=== PATIENT | female | born 1980 | race American Indian/Alaskan Native ===

== ENCOUNTER 2019-06-21 05:36 | Inpatient (IN) | payer OTHER ==
[2019-06-21] MEDS ORDERED: FAMOTIDINE 20 MG/2 ML INJ IV ONE (06:00)
[2019-06-21] MEDS ORDERED: BICITRA ORAL LIQD 30ML PO ONE (06:00)
[2019-06-21] MEDS ORDERED: METOCLOPRAMIDE 10 MG/2 ML INJ IV ONE (06:00)
[2019-06-21] MEDS ORDERED: OXYTOCIN 20 UNIT/1000ML DRIP 20 UNITS/1,000 ML BAG IV SCH ×3 (06:00→11:00)
[2019-06-21] MEDS: LACTATED RINGERS 1,000 ML IV SCH ×2 (06:15→06:57)
[2019-06-21 06:27] LABS: Basophils % (Auto) 0.8 % (0.0-1.8); Eosinophils # (Auto) 0.1 K/mm3 (0.0-0.4); Eosinophils % (Auto) 2.1 % (0.0-4.3); Hematocrit 36.4 % (30.3-42.9); Hemoglobin 12.2 gm/dl (10.1-14.3); Lymphocytes # (Auto) 1.8 K/mm3 (1.2-5.4); Lymphocytes % (Auto) 32.4 % (13.4-35.0); Mean Corpuscular HGB Conc 34 % (30-34); Mean Corpuscular Volume 96 fl (79-97); Monocytes # (Auto) 0.6 K/mm3 (0.0-0.8); Monocytes % (Auto) 11.2 % (0.0-7.3); Platelet Count 175 K/mm3 (140-440); Red Cell Distribution Width 13.5 % (13.2-15.2)
--- NOTE | 2019-06-21 06:47 | Anesthesia Day of Surgery ---
Anesthesia Day of Surgery - Day of Surgery Patient Examined: Yes Patient H&P Reviewed: Yes Patient is NPO: Yes Beta Blockers: No Cardiac Clearance: No Pulmonary Clearance: No Rey's Test: N/A
[2019-06-21] MEDS ORDERED: ONDANSETRON 4 MG/2 ML INJ IV PRN ×2 (06:49→10:46)
--- NOTE | 2019-06-21 06:49 | Anesthesia Consultation ---
Anesthesia Consult and Med Hx Date of service: 06/21/19 - Airway Anesthetic Teeth Evaluation: Good ROM Head & Neck: Adequate Mental/Hyoid Distance: Adequate Mallampati Class: Class II Intubation Access Assessment: Probably Good - Pulmonary Exam CTA: Yes - Cardiac Exam Cardiac Exam: RRR - Pre-Operative Health Status ASA Pre-Surgery Classification: ASA2 Proposed Anesthetic Plan: Epidural - Pulmonary Hx Smoking: No Hx Asthma: No Hx Respiratory Symptoms: No SOB: No COPD: No Home Oxygen Therapy: No Hx Pneumonia: No Hx Sleep Apnea: No - Cardiovascular System Hx Hypertension: No Hx Coronary Artery Disease: No Hx Heart Attack/AMI: No Hx Angina: No Hx Percutaneous Transluminal Coronary Angioplasty (PTCA): No Hx Cardia Arrhythmia: No Hx Pacemaker: No Hx Internal Defibrillator: No Hx Valvular Heart Disease: No Hx Heart Murmur: No Hx Peripheral Vascular Disease: No - Central Nervous System Hx Neuromuscular Disorder: No Hx Seizures: No CVA: No Hx Back Pain: Yes Hx Psychiatric Problems: No - Gastrointestinal Hx Ulcer: No Hx Gastroesophageal Reflux Disease: Yes - Endocrine Hx Renal Disease: No Hx End Stage Renal Disease: No Hx Cirrhosis: No Hx Liver Disease: No Hx Insulin Dependent Diabetes: No Hx Non-Insulin Dependent Diabetes: No Hx Thyroid Disease: No Hx Hypothyroidism: No Hx Hyperthyroidism: No - Hematic Hx Anemia: No Hx Sickle Cell Disease: No - Other Systems Hx Alcohol Use: No Hx Substance Use: No Hx Cancer: No Hx Obesity: Yes
[2019-06-21] MEDS ORDERED: HYDROmorphone 1 MG/1 ML INJ IV PRN (06:50)
--- NOTE | 2019-06-21 08:13 | History and Physical Report ---
History of Present Illness Date of examination: 06/21/19 Date of admission: 06/21/19 05:36 Chief complaint: here for a second section. History of present illness: x 1 previous . AQUILES 06/24/2019. Past History Past Surgical History: section - Obstetrical History Expected Date of Delivery: 06/24/19 Actual Gestation: 39 Week(s) 4 Day(s) : 5 Para: 2 Medications and Allergies Allergies Allergy/AdvReac Type Severity Reaction Status Date / Time No Known Allergies Allergy Verified 06/21/19 05:59 Active Meds: Active Medications Citric Acid/Sodium Citrate (Bicitra) 30 ml PO ONCE ONE Stop: 06/21/19 08:04 Famotidine (Pepcid) 20 mg IV ONCE ONE Stop: 06/21/19 08:04 Hydromorphone HCl (Dilaudid) 0.5 mg IV Q5M PRN PRN Reason: BREAK>97-10) Stop: 06/21/19 14:32 Oxytocin/Sodium Chloride (Pitocin/Ns 20 Unit/1000ml Drip) 20 units in 1,000 mls @ 0 mls/hr IV TITR NIDHI Lactated Ringer's (Lactated Ringers) 1,000 mls @ 2,250 mls/hr IV PREOP NIDHI Stop: 06/22/19 06:27 Last Admin: 06/21/19 06:57 Dose: 2,250 mls/hr Documented by: Oxytocin/Sodium Chloride (Pitocin/Ns 20 Unit/1000ml Drip) 20 units in 1,000 mls @ 0 mls/hr IV TITR NIDHI Cefazolin Sodium (Ancef/Sterile Water 2 Gm/20 Ml) 2 gm in 20 mls @ 80 mls/hr IV PREOP NR; Protocol Metoclopramide HCl (Reglan) 10 mg IV ONCE ONE Stop: 06/21/19 08:04 Ondansetron HCl (Zofran) 4 mg IV Q8H PRN PRN Reason: Nausea And Vomiting Review of Systems All systems: negative - Vital Signs Vital signs: Vital Signs Temp Pulse Resp BP 98.5 F 82 17 118/69 06/21/19 06:38 06/21/19 06:38 06/21/19 06:38 06/21/19 06:38 Temp Pulse Resp BP Pulse Ox 98.5 F 82 17 118/69 06/21/19 06:38 06/21/19 06:38 06/21/19 06:38 06/21/19 06:38 - Physical Exam Lungs: Positive: Normal air movement Abdomen: Positive: distention. Negative: tenderness, guarding Uterus: Positive: normal size, enlarged, normal contour - Obstetrical FHR: auscultation normal Results Result Diagrams: 06/21/19 06:10 Abnormal lab results 06/21/19 Range/Units 06:10 Hardy % (Auto) 11.2 H (0.0-7.3) % All other labs normal. Assessment and Plan - Patient Problems (1) Previous delivery, antepartum Current Visit: Yes Status: Acute Plan to address problem: Patient was provided with all information she needed for an informed consent. She will be delivered by .
[2019-06-21] MEDS ORDERED: ceFAZolin/Water 2 GM/20 ML 2 GM/20 ML SYRINGE IV NR (08:30)
[2019-06-21] MEDS ORDERED: FAMOTIDINE 20 MG/2 ML INJ IV SCH (08:30)
[2019-06-21] MEDS ORDERED: BICITRA ORAL LIQD 30ML PO SCH (08:30)
[2019-06-21] MEDS ORDERED: WATER FOR IRRIG STERILE 1,500 ML BOTTLE IR ONE (08:38)
[2019-06-21] MEDS ORDERED: SODIUM CHLORIDE 0.9% IRR 1,500 ML BOTTLE IR ONE (08:38)
[2019-06-21] MEDS ORDERED: METOCLOPRAMIDE 10 MG/2 ML INJ IV NR (09:00)
[2019-06-21] MEDS ORDERED: ONDANSETRON 4 MG/2 ML INJ ONE (09:11)
[2019-06-21] MEDS ORDERED: DEXMEDETOMIDINE 200 MCG/2 ML VIAL IV ONE (09:11)
[2019-06-21] MEDS ORDERED: KETOROLAC 30 MG/1 ML INJ ONE (09:11)
[2019-06-21] MEDS ORDERED: LANOLIN/ZINC/DIMETHICONE (LANSINOH) 7 GM TP PRN (10:46)
[2019-06-21] MEDS ORDERED: ACETAMINOPHEN 325 MG TAB PO PRN (10:46)
[2019-06-21] MEDS ORDERED: MORPHINE 4 MG/1 ML INJ IV PRN (10:46)
[2019-06-21] MEDS ORDERED: NALOXONE 0.4 MG/1 ML INJ IV PRN (10:46)
[2019-06-21] MEDS ORDERED: WITCH HAZEL/ GLYCERIN PAD TP PRN (10:46)
--- NOTE | 2019-06-21 10:58 | Operative Report ---
Operative Report Operative Report: Date of surgery: June 21, 2019 Preoperative diagnoses: Term , previous section, elective repeat , breech presentation, peritoneal adhesions Postoperative diagnoses: The same. Operation: Lower segment transverse delivery Surgeon: Beena Hudson MD Process Analyst: Jerry Granado CRNA Anesthesia: Spinal block Estimated blood loss: 1000 mL Complications: None Findings: There was a live baby boy in footling breech presentation. weight was 8 pounds 10 ounces with Apgars of 8/9. There was a broad omental adherence to the right side of the midline anterior parietal peritoneum over the iliac fossa. Both ovaries and fallopian tubes as well as the uterus were all grossly normal. The uterus was not exteriorized and no bowel loops were visualized. Procedure in detail: The patient was taken to the operating room and given a spinal block. Patient was placed in the straight supine position and a Mathis catheter was inserted. The patient was prepped in the abdomen. The drapes were placed. A timeout was done. With the go ahead from the label fuser tender, a Pfannenstiel incision was made. This incision was carried across the subcutaneous layer to the fascia which was also divided transversely. The recti abdominis muscle flaps were stripped from the fascia using a combination of blunt and sharp dissections. The muscles were in the midline to gain access to the anterior parietal peritoneum which was divided after excluding any underlying viscera. The access to the peritoneal cavity was then widened by manual stretching. The bladder blade was applied. The utero vesicle peritoneal flap was divided transversely allowing the bladder to be displaced caudally. The uterine incision was placed in the lower segment transversely. The uterine incision was carried to the decidual layer. The uterine incision was extended on both sides using the bandage scissors. The amniotic sac was ruptured with clear fluid. The buttocks were delivered through the incision by pulling with the fingers within the flexed thigh against the pelvis. Upon reaching close to the knees the thighs were each abducted to deliver the lower limbs through the incision. Using a wet towel wrapped around the waist traction was used to deliver the baby up to the shoulder blades. The Lovset maneuver was used to deliver the arms. The baby was then grasped and the ankles and positioned head down after which fundal pressure and traction on the ankles delivered the head through the incision. The airways were bulb suctioned beginning with the mouth. The umbilical cord was double clamped and divided. The baby was carefully transferred to the pediatric team. The placenta was manually removed from the uterine cavity. The uterine cavity was explored and was empty of any placental remnants. The uterine incision was repaired in 2 layers with #1 Vicryl. The surgical line on the uterus was hemostatic. The adhesions involving the greater omentum to the anterior parietal peritoneum over the right iliac fossa where secured in a pedicle and transected. The stump s were then tied off with #1 Vicryl. Blood and clots were cleared from the peritoneal cavity. The anterior parietal peritoneum was repaired with #1 Vicryl. The fascia was repaired with #1 Vicryl. The subcutaneous layer was made hemostatic using the Bovie before the skin was closed subcuticularly with 4-0 Vicryl. There were no complications. The estimated blood loss was 1000 mL. All sponges and instrument counts were correct. Patient was safely transferred to the recovery room.
[2019-06-21] MEDS: KETOROLAC 30 MG/1 ML INJ IV PRN ×2 (15:54→21:58)
[2019-06-21] MEDS ORDERED: LACTATED RINGERS 1,000 ML IV SCH (16:00)
[2019-06-21] MEDS: HYDROcodone/ACETAMINOPHEN 5-325 MG TAB PO PRN (18:01)
[2019-06-21] MEDS: ceFAZolin/NS 1 GM/50 ML 1 GM/50 ML BAG IV SCH (19:08)
[2019-06-21 22:54] LABS: Hematocrit 27.6 % (30.3-42.9); Hemoglobin 9.7 gm/dl (10.1-14.3)
[2019-06-22] MEDS: HYDROcodone/ACETAMINOPHEN 5-325 MG TAB PO PRN (05:04)
[2019-06-22] MEDS: IBUPROFEN 800 MG TAB PO PRN (08:54)
[2019-06-22] MEDS: FERROUS SULFATE 325 MG TAB PO SCH (10:26)
[2019-06-22] MEDS: PRENATAL VIT27-FE FUMARATE-FOLIC ACID VIT TAB PO SCH (10:26)
[2019-06-22] MEDS: oxyCODONE /ACETAMINOPHEN 5-325MG TAB PO PRN ×2 (10:46→20:59)
--- NOTE | 2019-06-22 11:17 | Progress Note ---
Assessment and Plan - Patient Problems (1) S/P repeat low transverse Current Visit: Yes Status: Acute Plan to address problem: POD 1 - stable Continue routine postop orders Abdominal binder ordered Ambulation encouraged, as tolerated Anticipate discharge in 24-48 hours (2) Single live Current Visit: Yes Status: Acute (3) Anemia due to blood loss, acute Current Visit: Yes Status: Acute Plan to address problem: Asymptomatic Continue iron therapy Subjective - Subjective Date of service: 06/22/19 Principal diagnosis: POD #1; s/p Repeat LTCS Interval history: see [employer]-H&P and Operative Report Patient reports: appetite normal, voiding normally, pain well controlled, flatus, ambulating normally, no dizzy ambulation, no bowel movement : doing well, other (breast and bottle feeding) Objective - Vital Signs Latest vital signs: Vital Signs Temp Pulse Resp BP BP Pulse Ox 06/22/19 08:43 97.9 F 83 20 103/62 96 06/21/19 20:34 98.0 F 71 18 104/56 94 06/21/19 17:52 97.9 F 79 20 109/68 99 06/21/19 12:12 97.5 F L 18 106/68 06/21/19 11:49 97.4 F L 75 18 121/75 98 06/21/19 11:40 71 18 108/67 99 06/21/19 11:25 65 18 106/68 100 Intake and Output 06/21/19 06/22/19 06/22/19 23:59 07:59 15:59 Intake Total 200 300 Balance 200 300 Intake: Oral 200 Intake, Free Water 300 Other: Total, Intake Amount 200 # Voids Indwelling Catheter 700 - Exam Cardiovascular: Present: Regular rate Lungs: Present: Clear to auscultation Abdomen: Present: normal appearance, soft Vulva: both: normal Uterus: Present: normal, firm, fundal height at umbilicus Extremities: Present: normal Incision: Present: normal, dry, intact, dressed Comments: small lochia - Labs Labs: Abnormal lab results 06/21/19 Range/Units 22:34 Hgb 9.7 L (10.1-14.3) gm/dl Hct 27.6 L D (30.3-42.9) %
[2019-06-22] MEDS: ceFAZolin/NS 1 GM/50 ML 1 GM/50 ML BAG IV SCH (16:51)
--- NOTE | 2019-06-22 19:57 | Post Anesthesia Evaluation ---
- Post Anesthesia Evaluation Patient Participated: Yes Airway Patent: Yes Stable Respiratory Function: Yes Nausea/Vomiting: No Temp > 96.8F: Yes Pain Manageable: Yes Adequeate Hydration: Yes Anesthesia Complications: No Block Receding Appropriately: Yes
[2019-06-23] MEDS: oxyCODONE /ACETAMINOPHEN 5-325MG TAB PO PRN ×3 (04:08→20:03)
[2019-06-23] MEDS: PRENATAL VIT27-FE FUMARATE-FOLIC ACID VIT TAB PO SCH (09:54)
[2019-06-23] MEDS: FERROUS SULFATE 325 MG TAB PO SCH (09:54)
--- NOTE | 2019-06-23 11:26 | Progress Note ---
Assessment and Plan A: /postop day 2 S/P repeat LTCS. Anemia. P: Continue oral iron supplementation. Encouraged ambulation. Anticipate discharge home tomorrow if patient continues to do well. Subjective - Subjective Date of service: 06/23/19 Principal diagnosis: POD #2; s/p Repeat LTCS Interval history: /postop day 2 S/P repeat low transverse section. Doing well. Receiving oral iron supplementation for anemia. Patient is voiding without difficulty, passing gas, tolerating a regular diet, and ambulating well. Patient denies headache, dizziness, chest pain, shortness of breath, cough, leg pain, or heavy vaginal bleeding. Patient reports: appetite normal, voiding normally, pain well controlled, flatus, ambulating normally, no dizzy ambulation, no nauseated : doing well Objective - Vital Signs Latest vital signs: Vital Signs Temp Pulse Resp BP Pulse Ox 06/23/19 08:44 97.8 F 78 16 104/63 98 06/23/19 04:08 20 06/23/19 00:00 98.6 F 66 16 104/78 06/22/19 20:59 20 06/22/19 17:05 97.6 F 71 18 101/65 99 Intake and Output 06/22/19 06/23/19 06/23/19 23:59 07:59 15:59 Other: # Voids Void 1 - Exam Cardiovascular: Present: Regular rate, Normal S1, Normal S2, No murmurs Lungs: Present: Clear to auscultation Abdomen: Present: normal appearance, soft, normal bowel sounds. Absent: diste ntion, tenderness, guarding, rigidity Uterus: Present: normal, firm, fundal height below umbilicus. Absent: bogginess, tenderness Extremities: Present: normal, edema (mild pedal edema bilaterally). Absent: tenderness Incision: Present: normal, dry, intact, dressed
[2019-06-23] MEDS: IBUPROFEN 800 MG TAB PO PRN (17:49)
[2019-06-23] MEDS ORDERED: MAGNESIUM HYDROXIDE (MOM) ORAL LIQD UDC PO PRN (18:57)
[2019-06-24] MEDS: oxyCODONE /ACETAMINOPHEN 5-325MG TAB PO PRN ×3 (03:47→16:13)
[2019-06-24] MEDS: PRENATAL VIT27-FE FUMARATE-FOLIC ACID VIT TAB PO SCH (10:10)
[2019-06-24] MEDS: FERROUS SULFATE 325 MG TAB PO SCH (10:10)
--- NOTE | 2019-06-24 12:06 | Progress Note ---
Assessment and Plan A: /postop day 3 S/P repeat LTCS. Anemia. P: Continue iron supplementation. Recheck blood pressure. Continue ambulation. Elevated LE when at rest. Subjective - Subjective Date of service: 06/24/19 Principal diagnosis: POD #3; s/p Repeat LTCS Interval history: /postop day 3 S/P repeat low transverse section. Doing well. Receiving oral iron supplementation for anemia. Patient is voiding without difficulty, passing gas, tolerating a regular diet, and ambulating well. Patient denies headache, dizziness, chest pain, shortness of breath, cough, leg pain, nausea or vomiting or heavy vaginal bleeding. Patient reports: appetite normal, voiding normally, pain well controlled, flatus, ambulating normally, no dizzy ambulation, no nauseated Mouthcard: doing well Objective - Vital Signs Latest vital signs: Vital Signs Temp Pulse Resp BP BP Pulse Ox 06/24/19 09:01 97.9 F 78 18 151/65 98 06/24/19 03:47 06/24/19 01:36 97.8 F 86 20 108/73 99 06/23/19 20:03 20 06/23/19 15:54 97.9 F 76 14 110/68 100 Intake and Output 06/23/19 06/24/19 06/24/19 23:59 07:59 15:59 Intake Total 400 840 Balance 400 840 Intake: Oral 400 Intake, Free Water 840 Other: Total, Intake Amount 200 Voiding Method Toilet # Voids 1 Void 1 2 - Exam Cardiovascular: Present: Regular rate, Normal S1, Normal S2, No murmurs Lungs: Present: Clear to auscultation Abdomen: Present: normal appearance, soft, normal bowel sounds. Absent: distention, tenderness, guarding, rigidity Uterus: Present: normal, firm, fundal height below umbilicus. Absent: bogginess, tenderness Extremities: Present: edema (moderate pedal edema bilaterally). Absent: tenderness Incision: Present: normal, dry, intact
[2019-06-24 17:13] VITALS: BP 107/69
--- NOTE | 2019-06-24 18:00 | Discharge Summary ---
Providers - Providers Date of Admission: 06/21/19 05:36 Date of discharge: 06/24/19 Attending physician: KG ESPINAL Primary care physician: KG ESPINAL Hospitalization Reason for admission: section Delivery: Procedure: repeat low transverse Other procedures: none complications: none Discharge diagnosis: IUP at term delivered [place] baby: male Pertinent studies: Labs Hospital course: Normal hospital course. Condition at discharge: Good Disposition: DC-01 TO HOME OR SELFCARE - Discharge Diagnoses (1) Term delivered Status: Acute (2) Anemia Status: Acute Plan - Discharge Medications Prescriptions: HYDROcodone/APAP 5-325 [[place] 5/325] 1 - 2 each PO Q4HR PRN #30 tablet PRN Reason: Pain - Provider Discharge Summary Activity: routine, no sex for 6 weeks, no heavy lifting 4 weeks, no strenuous exercise Diet: routine Instructions: routine Additional instructions: Continue taking your vitamins and iron supplements at home. Call your doctor immediately for: * Fever > 100.5 * Heavy vaginal bleeding ( >1 pad per hour) * Severe persistent headache * Shortness of breath * Reddened, hot, painful area to leg or breast * Drainage or odor from incision. * Keep incision clean and dry at all times and follow doctor's instructions regarding bathing/showering - Follow up plan Follow up: KG ESPINAL MD [Primary Care Provider] - 06/26/19
== END 2019-06-24 21:25 | disposition home or self-care (01) | DRG 787 ==
LOC: UNDOADMIN 05:36 → APU 05:36 → UNDOADMIN 09:28 → APU 09:28 → OB 12:31
PROVIDERS: ADMIT Obstetrics & Gynecology; ATTEND Obstetrics & Gynecology
PROC: 10D00Z1 Extraction of Products of Conception, Low, Open Approach (ICD-10-PCS; principal; 2019-06-21)
DX: O32.1XX0 Maternal care for breech presentation, not applicable or unspecified (principal); D62 Acute posthemorrhagic anemia; O99.62 Diseases of the digestive system complicating childbirth; O99.214 Obesity complicating childbirth; E66.9 Obesity, unspecified; K21.9 Gastro-esophageal reflux disease without esophagitis; O90.81 Anemia of the puerperium; K66.0 Peritoneal adhesions (postprocedural) (postinfection); O34.211 Maternal care for low transverse scar from previous cesarean delivery; Z3A.39 39 weeks gestation of pregnancy; Z37.0 Single live birth
CPT/HCPCS: 36415; 85014; 85018; 85025; 86850; 86900; 86901; G0378; J0690; J1885; J2405; J2590; J2765; J3490; J7120